=== PATIENT | female | born 1965 | race Caucasian/White ===

== ENCOUNTER 2018-12-30 23:16 | Emergency (ER) | payer OTHER ==
[~2018-12-30] VITALS: Ht 152.4 cm; Wt 77.1 kg
--- NOTE | 2018-12-30 23:16 | NUR ---
PT OSCAR ALS. TAKEN TO BED 10
[2018-12-30] MEDS ORDERED: NACL 0.9% 1,000 ML IV ONE (23:20)
[2018-12-30 23:21] VITALS: BP 151/94
--- NOTE | 2018-12-30 23:24 | NUR ---
X-Ray at bedside.
--- NOTE | 2018-12-30 23:31 | NUR ---
PT PRESENTS TO ED BIBA FOR SUDDEN ONSET CHEST PAIN X 30 MINS. NO SOB AT THIS TIME. PT DENIES ANY PERCIPITATING FACTORS. EKG PERFORMED AT BEDSIDE. PT PLACED INTO BED, ON ALL MONITORS. ER MD AWARE OF PT STATUS. 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
[2018-12-30 23:37] LABS: BASOPHILS % (AUTO) 0.7 % (0.0-2.0); EOSINOPHILS # (AUTO) 0.5 K/uL (0-0.4); EOSINOPHILS % (AUTO) 7.3 % (0.0-4.0); HEMATOCRIT 42.3 % (36-48); HEMOGLOBIN 14.3 g/dL (12.0-16.0); LYMPHOCYTES # (AUTO) 2.9 K/uL (2.5-16.5); LYMPHOCYTES % (AUTO) 37.7 % (20.5-51.1); MEAN CORPUSCULAR HEMOGLOBIN 30 pg (27-31); MEAN CORPUSCULAR HGB CONC 34 g/dL (33-37); MEAN CORPUSCULAR VOLUME 87.2 fL (80-94); MONOCYTES # (AUTO) 0.6 K/uL (0.8-1.0); MONOCYTES % (AUTO) 7.8 % (1.7-9.3); NEUTROPHILS # (AUTO) 3.5 K/uL (1.8-7.7); NEUTROPHILS % (AUTO) 46.5 % (42.2-75.2); PLATELET COUNT (AUTO) 272 K/uL (140-450); RED BLOOD CELL COUNT(AUTO) 4.86 MIL/uL (4.20-5.40); RED CELL DISTRIBUTION WIDTH 13.5 % (11.6-13.7); WHITE BLOOD COUNT (AUTO) 7.6 K/uL (4.8-10.8)
--- NOTE | 2018-12-30 23:38 | NUR ---
Dr. Benavides evaluating patient at bedside.
[2018-12-30] MEDS ORDERED: ALUMINUM HYD/MAG/SIMETHICONE 30 ML UDC PO ONE (23:45)
[2018-12-30] MEDS ORDERED: LIDOCAINE VISCOUS 2% 20 ML UDC PO ONE (23:45)
[2018-12-30] MEDS ORDERED: DICYCLOMINE HCL LIQUID 10 MG/5 ML UDC PO ONE (23:45)
[2018-12-30 23:48] LABS: ANION GAP 11.6 (8-16); CARBON DIOXIDE 25.7 mmol/L (21-32); CREATININE 0.7 mg/dL (0.6-1.3); POTASSIUM 3.3 mmol/L (3.5-5.1)
[2018-12-30 23:50] LABS: ALBUMIN 3.8 g/dL (3.4-5.0); TOTAL BILIRUBIN 0.9 mg/dL (0.0-1.0)
[2018-12-31 00:01] LABS: PROTHROMBIN TIME 9.1 secs (10.8-13.4)
--- NOTE | 2018-12-31 00:04 | NUR ---
FAMILY AT BEDSIDE
[2018-12-31] MEDS ORDERED: LORazepam 2 MG/ML VIAL IVP ONE (00:10)
[2018-12-31] MEDS ORDERED: KETOROLAC 30 MG/ML VIAL IVP ONE (00:10)
[2018-12-31] MEDS ORDERED: PANTOPRAZOLE 40 MG INJ VIAL IVP ONE (00:35)
--- NOTE | 2018-12-31 00:45 | NUR ---
MEDS GIVEN-NADR AT THIS TIME
--- NOTE | 2018-12-31 00:55 | NUR ---
Patient discharged with v/s stable. Written and verbal after care instructions given and explained. Patient alert, oriented and verbalized understanding of instructions. Ambulatory with steady gait. All questions addressed prior to discharge. ID band removed. Patient advised to follow up with PMD. Rx of MAALOX, PROTONIX given. Patient educated on indication of medication including possible reaction and side effects. Opportunity to ask questions provided and answered.
[2018-12-31 00:56] VITALS: BP 144/88
== END 2018-12-31 00:55 | disposition home or self-care (01) ==
LOC: MED 23:16
DX: K21.9 Gastro-esophageal reflux disease without esophagitis (principal); R07.89 Other chest pain
CPT/HCPCS: 36415; 71045; 80053; 84484; 85025; 85610; 85730; 96374; 96375; 99284; C9113; J1885; J2060; 93005

== ENCOUNTER 2023-06-26 14:47 | Inpatient (IN) | payer MEDICAID, OTHER ==
[~2023-06-26] VITALS: Ht 160 cm; Wt 81.6 kg
--- NOTE | 2023-06-26 14:47 | NUR ---
BIBA BLS TO ER BED 9
--- NOTE | 2023-06-26 14:50 | NUR ---
MD BARNES AT EVALUATING PT. PT C/O RUQ PAIN. PT S/P CHOLECYSTECTOMY (MAY 07) WHICH WAS PERFORMED IN [place]. SINCE HER SURGERY SHE HAS CONTINUED TO EXPERIENCE RUQ PAIN. PAIN WORSE TODAY.
[2023-06-26 14:56] VITALS: BP 137/80; PULSE 81; RESP 16; TEMP 98.4; O2SAT 98
--- NOTE | 2023-06-26 15:05 | NUR ---
PT TAKEN OFF UNIT TO CT-SCAN.
--- NOTE | 2023-06-26 15:24 | NUR ---
UA CUP GIVEN TO PT. ASKED PT TO PROVIDE URINE SAMPLE. LAB AT DRAWING PT.
[2023-06-26 15:37] LABS: BASOPHILS # (AUTO) 0.1 K/uL (0.00-0.22); BASOPHILS % (AUTO) 0.7 % (0.0-2.0); EOSINOPHILS # (AUTO) 0.3 K/uL (0-0.4); EOSINOPHILS % (AUTO) 3.7 % (0.0-4.0); HEMATOCRIT 41.7 % (36-48); HEMOGLOBIN 14.2 g/dL (12.0-16.0); LYMPHOCYTES # (AUTO) 1.7 K/uL (2.5-16.5); LYMPHOCYTES % (AUTO) 19.1 % (20.5-51.1); MEAN CORPUSCULAR HEMOGLOBIN 30 pg (27-31); MEAN CORPUSCULAR HGB CONC 34 g/dL (33-37); MEAN CORPUSCULAR VOLUME 87.3 fL (80-94); MONOCYTES # (AUTO) 0.6 K/uL (0.8-1.0); MONOCYTES % (AUTO) 6.8 % (1.7-9.3); NEUTROPHILS # (AUTO) 6.3 K/uL (1.8-7.7); NEUTROPHILS % (AUTO) 69.7 % (42.2-75.2); PLATELET COUNT (AUTO) 255 K/uL (140-450); RED BLOOD CELL COUNT(AUTO) 4.78 MIL/uL (4.20-5.40); RED CELL DISTRIBUTION WIDTH 14.7 % (11.6-13.7)
--- NOTE | 2023-06-26 15:49 | NUR ---
Cayden salazar in ED - 06/26/23 at 1558 by MEDSC IVPB ANTIBIOTIC CONTINUES TO INFUSE.
[2023-06-26 15:53] LABS: ALBUMIN 3.6 g/dL (3.4-5.0); ANION GAP 13.4 (8-16); ASPARTATE AMINOTRANSFERASE 96 U/L (15-37); CARBON DIOXIDE 24.3 mmol/L (21-32); CHLORIDE 110 mmol/L (98-107); CREATININE 0.7 mg/dL (0.6-1.3); GFR ARICAN-AMERICAN 111 mL/min (>90); GLUCOSE 96 mg/dL (74-106); LIPASE 156 U/L (73-393); POTASSIUM 3.7 mmol/L (3.5-5.1); SODIUM SERUM 144 mmol/L (136-145); TOTAL BILIRUBIN 1.5 mg/dL (0.0-1.0); UREA NITROGEN, BLOOD 8 mg/dL (7-18)
--- NOTE | 2023-06-26 15:59 | NUR ---
ULTRASOUND BEING PERFORMED AT BS. CONTINUE TO PEND UA SAMPLE.
[2023-06-26] MEDS ORDERED: KETOROLAC 30 MG/ML VIAL IM ONE (16:55)
[2023-06-26] MEDS ORDERED: KETOROLAC 30 MG/ML VIAL IVP ONE (16:55)
[2023-06-26] MEDS ORDERED: ACETAMINOPHEN EXTRA STRENGTH 500 MG TAB PO ONE (16:55)
--- NOTE | 2023-06-26 17:00 | NUR ---
INFORMED THE PT THAT SHE WOULD BE ADMITTED INTO THE HOSPITAL DUE TO A RETAINED STONE THAT IS IN THE COMMON BILE DUCT. WILL INSERT H/L ORDERED.
[2023-06-26 17:08] LABS: APPEARANCE,URINE CLEAR (CLEAR); BILIRUBIN,URINE NEGATIVE (NEGATIVE); BLOOD, URINE 1+ (NEGATIVE); COLOR,URINE YELLOW (YELLOW); LEUKOCYTE ESTERASE ,URINE TRACE (NEGATIVE); NITRITE, URINE NEGATIVE (NEGATIVE); PH,URINE 6.5 (5.0-9.0); UGLUCOSE NEGATIVE (NEGATIVE)
[2023-06-26] MEDS ORDERED: ERGO-30 PO (17:41)
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
[2023-06-26] MEDS ORDERED: ZOLPIDEM 5 MG TAB PO PRN (18:05)
[2023-06-26] MEDS ORDERED: HYDROcodone/APAP 7.5/325 MG 1 TAB PO PRN (18:05)
[2023-06-26] MEDS ORDERED: ONDANSETRON 4 MG/2 ML VIAL IM/IVP PRN (18:05)
[2023-06-26] MEDS ORDERED: guaiFENesin DM 200/20 MG-10 ML 10 ML UDC PO PRN (18:05)
[2023-06-26] MEDS ORDERED: POTASSIUM CHLORIDE 10 MEQ TABER PO PRN (18:05)
[2023-06-26] MEDS ORDERED: ACETAMINOPHEN 325 MG TAB PO PRN (18:05)
[2023-06-26] MEDS ORDERED: DOCUSATE SODIUM 100 MG GELCAP PO PRN (18:05)
[2023-06-26 18:34] LABS: PROTHROMBIN TIME 9.6 secs (10.8-13.4)
[2023-06-26 18:41] LABS: FREE T4 (FREE THYROXINE) 1.17 ng/dL (0.76-1.46); MAGNESIUM 2.3 mg/dL (1.8-2.4); PHOSPHORUS 3.8 mg/dL (2.5-4.9); THYROID STIMULATING HORMONE 0.88 uIU/mL (0.34-3.74)
[2023-06-26] MEDS: DEXT 5% /NACL 0.9% 1,000 ML IV SCH (19:27)
--- NOTE | 2023-06-26 19:47 | NUR ---
attempted to call report . [facility] nurse to call back
--- NOTE | 2023-06-26 19:48 | NUR ---
PT RESTING IN BED WITH HOB ELEVATED. 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 PENDING TX TO FLOOR 120B. RESP EVEN AND UNLABORED. 03/09 PAIN RUQ SHARP/BURNING.
--- NOTE | 2023-06-26 20:16 | NUR ---
REPORT GIVEN TO STAS BOYD
--- NOTE | 2023-06-26 20:23 | NUR ---
Patient will be admitted to care of DR ROBLES. Admited to [facility]. Will go to [id number]. Belongings list completed. Report to STAS BOYD.
--- NOTE | 2023-06-26 20:23 | NUR ---
PT TRANSPORTED TO /S 120B
[2023-06-26 20:30] VITALS: RESP 19; O2SAT 100
--- NOTE | 2023-06-26 20:30 | NUR ---
RECEIVED ENDORSEMENT FROM JAMAR BOYD, PATIENT WAS IN BED WITH FAMILY AT BEDSIDE. PATIENT ARRIVED FROM THE ED VIA GURNEY. PATIENT ALERT AND ORIENTED X 4. ADMISSION ORDERS ARE AVAILABLE. PATIENT NOSE WAS SWABBED FOR MRSA SCREENING. ORDERS FOR ACCUCHECK WITH SLIDING SCALE WERE PLACE PER PROTOCOL. PATIENT SKIN WAS CLEAN AND INTACT. NPO EXCEPT MEDICATION. PATIENT WAS OFFERED THE VOYCE FOR TRANSLATION BUT DECLINED. PATIENT GAVE HER MEDICAL HISTORY WITHOUT INCIDENT. PATIENT DENIED ANY PAIN/DISCOMFORT AT THIS TIME. ALL NEEDS WERE MET AT THIS TIME. NO NOTED RESPIRATORY DISTRESS. CHEST NOTED RISING AND FALLING WITHOUT INCIDENT. PATIENT KEPT CLEAN AND DRY AT THIS TIME. SIDE RAILS UP X 2 FOR SAFETY AND ADJUSTMENT. CALL LIGHT WITHIN REACH FOR ALL ASSISTANCE. [email or web address]
--- NOTE | 2023-06-26 20:30 | NUR ---
Patient's Plan of Care was discussed and reviewed with FLAKITO BOYD:
[2023-06-26] MEDS: MORPHINE SULFATE 2 MG/ML SYR IVP PRN (23:28)
--- NOTE | 2023-06-27 00:50 | NUR ---
PATIENT WAS GIVEN PAIN PRN AND NO NOTED SIDE EFFECTS. PATIENT WAS ABLE TO SLEEP. NO NOTED RESPIRATORY DISTRESS AT THIS TIME. NO NOTED FACIAL GRIMACING AT THIS TIME OR CURLED IN A BALL MASSAGING HER STOMACH. SIDE RAILS UP X 2 CALL LIGHT WITHIN REACH. [email or web address]
[2023-06-27] MEDS: DEXT 5% /NACL 0.9% 1,000 ML IV SCH ×3 (01:30→16:20)
[2023-06-27] MEDS ORDERED: INSULIN LISPRO SLIDING SCALE 100 UNITS/ML VIAL SUBQ PRN (01:40)
--- NOTE | 2023-06-27 03:42 | NUR ---
PATIENT WAS ASLEEP. CHEST WAS RISING AND FALLING WITHOUT INCIDENT. ALL NEEDS MET. PATIENT REMAINS CLEAN AND DRY. NO S/S OF PAIN/DISCOMFORT. SIDE RAILS UP X 3 CALL LIGHT WITHIN REACH. [email or web address]
[2023-06-27 04:00] VITALS: BP 100/60; PULSE 53; RESP 17; TEMP 97.4; O2SAT 95
--- NOTE | 2023-06-27 05:16 | NUR ---
PATIENT HAS ON S/S OF HYPER/HYPOGLYCEMIA. DENIES PAIN AT THIS TIME. ALL NEEDS MET. KEPT CLEAN AND DRY. PATIENT WAS REMINDED TO PLEASE GIVE URINE WHEN SHE USES THE RESTROOM. PATIENT UNDERSTOOD AND AGREES. SIDE RAILS UP X 2 CALL LIGHT WITHIN REACH. [email or web address]
[2023-06-27 06:13] LABS: BASOPHILS % (AUTO) 0.8 % (0.0-2.0); EOSINOPHILS # (AUTO) 0.3 K/uL (0-0.4); EOSINOPHILS % (AUTO) 7.3 % (0.0-4.0); HEMATOCRIT 37.9 % (36-48); LYMPHOCYTES # (AUTO) 1.9 K/uL (2.5-16.5); LYMPHOCYTES % (AUTO) 39.6 % (20.5-51.1); MEAN CORPUSCULAR HEMOGLOBIN 30 pg (27-31); MEAN CORPUSCULAR HGB CONC 34 g/dL (33-37); MEAN CORPUSCULAR VOLUME 87.2 fL (80-94); MONOCYTES # (AUTO) 0.4 K/uL (0.8-1.0); MONOCYTES % (AUTO) 8.7 % (1.7-9.3); NEUTROPHILS % (AUTO) 43.6 % (42.2-75.2); PLATELET COUNT (AUTO) 229 K/uL (140-450); RED BLOOD CELL COUNT(AUTO) 4.35 MIL/uL (4.20-5.40); RED CELL DISTRIBUTION WIDTH 14.8 % (11.6-13.7); WHITE BLOOD COUNT (AUTO) 4.7 K/uL (4.8-10.8)
[2023-06-27] MEDS: BLOOD GLUCOSE MONITORING 1 DEV DEV FS SCH ×4 (06:58→21:54)
--- NOTE | 2023-06-27 07:04 | NUR ---
ENDORSED CARE TO OLVIN BENAVIDES, PATIENT WAS STABLE DURING THE CHANGE OF SHIFT. [email or web address]
--- NOTE | 2023-06-27 07:05 | NUR ---
RECEIVED BEDSIDE REPORT FROM NIGHTSHIFT NURSE. PT IS ASLEEP IN BED, WOKE TO NAME AND TOUCH. PT IS STABLE, NO SIGNS OF DISTRESS, NO REPORTS OF PAIN/DISCOMFORT. PT CALL LIGHT IS WITHIN REACH. NO FURTHER NEEDS ARE TO BE MET AT THIS TIME. WILL CONTINUE WITH PT CARE.
[2023-06-27 07:11] LABS: ANION GAP 11.5 (8-16); CARBON DIOXIDE 25.9 mmol/L (21-32); CREATININE 0.6 mg/dL (0.6-1.3); POTASSIUM 3.4 mmol/L (3.5-5.1)
[2023-06-27 07:51] LABS: ALBUMIN 3.1 g/dL (3.4-5.0); BILIRUBIN,DIRECT 0.2 mg/dL (0.0-0.3); TOTAL BILIRUBIN 1.3 mg/dL (0.0-1.0)
[2023-06-27 08:00] VITALS: BP 114/60; PULSE 57; RESP 18; TEMP 97.2; O2SAT 97
[2023-06-27 08:08] LABS: T4 (THYROXINE) 8.7 ug/dL (4.5-12.0)
[2023-06-27] MEDS: PANTOPRAZOLE 40 MG TABEC PO SCH (09:27)
[2023-06-27 16:00] VITALS: BP 113/70; PULSE 60; RESP 18; TEMP 97.9; O2SAT 96
[2023-06-27 18:05] LABS: BARBITURATE, URINE NEGATIVE ng/ml (NEG <=200); BENZODIAZEPINE, URINE NEGATIVE ng/mL (NEG <=200); CANNABINOID, URINE NEGATIVE ng/mL (NEG <=50); COCAINE, URINE NEGATIVE ng/mL (NEG <=300); OPIATE, URINE POSITIVE ng/mL (NEG <=2000); PHENCYCLIDINE SCREEN,URINE NEGATIVE ng/mL (NEG <=25)
--- NOTE | 2023-06-27 19:40 | NUR ---
SPOKE WITH GI MD EARLIER TODAY - INSTRUCTED TO KEEP PT NPO. PT STATES SHE IS HUNGRY AND IS REQUESTING FOOD. CONTACTED MD REGARDING PT REQUEST, NO REPLY. ENDORSED TO NIGHTSHIFT NURSE FOR CONTINUITY OF CARE. PT IS STABLE, RESTING IN BED, NO SIGNS OF DISTRESS. NO REPORTS OF PAIN OR DISCOMFORT. CALL LIGHT IS WITHIN REACH.
[2023-06-27 20:00] VITALS: BP 123/77; PULSE 60; RESP 18; TEMP 97.5; O2SAT 98
--- NOTE | 2023-06-27 21:00 | NUR ---
BLOOD SUGAR CHECKED = 104, NO SLIDING SCALE COVERAGE.
[2023-06-27] MEDS: MORPHINE SULFATE 2 MG/ML SYR IVP PRN (22:17)
--- NOTE | 2023-06-27 22:17 | NUR ---
PT COMPLAINTS OF ABDOMINAL PAIN 06/08, PAIN MEDICATION MORPHINE 2MG ADMINISTERED ORDER.
--- NOTE | 2023-06-27 23:17 | NUR ---
REASSESSMENT OF PAIN. PT IS ASLEEP, NO FACIAL GRIMACING.
--- NOTE | 2023-06-28 03:30 | NUR ---
PT SLEEPING WELL, NO SOB OR DISTRESS
[2023-06-28] MEDS: DEXT 5% /NACL 0.9% 1,000 ML IV SCH ×4 (03:49→22:48)
[2023-06-28 04:00] VITALS: BP 135/80; PULSE 65; RESP 18; TEMP 97.5; O2SAT 97
[2023-06-28 05:10] LABS: BASOPHILS % (AUTO) 0.5 % (0.0-2.0); EOSINOPHILS # (AUTO) 0.4 K/uL (0-0.4); EOSINOPHILS % (AUTO) 5.9 % (0.0-4.0); HEMATOCRIT 38.2 % (36-48); HEMOGLOBIN 13.1 g/dL (12.0-16.0); LYMPHOCYTES % (AUTO) 32.1 % (20.5-51.1); MEAN CORPUSCULAR HEMOGLOBIN 30 pg (27-31); MEAN CORPUSCULAR HGB CONC 35 g/dL (33-37); MEAN CORPUSCULAR VOLUME 87.3 fL (80-94); MONOCYTES # (AUTO) 0.6 K/uL (0.8-1.0); MONOCYTES % (AUTO) 9.1 % (1.7-9.3); NEUTROPHILS # (AUTO) 3.2 K/uL (1.8-7.7); NEUTROPHILS % (AUTO) 52.4 % (42.2-75.2); PLATELET COUNT (AUTO) 226 K/uL (140-450); RED BLOOD CELL COUNT(AUTO) 4.37 MIL/uL (4.20-5.40); RED CELL DISTRIBUTION WIDTH 14.7 % (11.6-13.7); WHITE BLOOD COUNT (AUTO) 6.2 K/uL (4.8-10.8)
[2023-06-28 06:16] LABS: ANION GAP 11.4 (8-16); CARBON DIOXIDE 23.3 mmol/L (21-32); CREATININE 0.6 mg/dL (0.6-1.3); POTASSIUM 3.7 mmol/L (3.5-5.1)
[2023-06-28] MEDS: BLOOD GLUCOSE MONITORING 1 DEV DEV FS SCH ×4 (06:30→22:45)
--- NOTE | 2023-06-28 06:30 | NUR ---
BLOOD SUGAR CHECKED = 104, NO SLIDING SCALE COVERAGE.
--- NOTE | 2023-06-28 07:35 | NUR ---
RECEIVED PATIENT ON BED REST , A/OX4 , NO SOB , AWAKE , NPO FOR OP TODAY ,NO COMPLAIN AT THIS SANTHOSH , STILL UNDER OBSERVE .
[2023-06-28 08:00] VITALS: BP 121/76; PULSE 56; RESP 18; TEMP 97; O2SAT 98
[2023-06-28] MEDS: PANTOPRAZOLE 40 MG TABEC PO SCH (08:09)
--- NOTE | 2023-06-28 09:49 | NUR ---
PATIENT HAS BEEN SCREENED AND CATEGORIZED HIGH NUTRITION RISK. PATIENT WILL BE SEEN WITHIN 1-2 DAYS OF ADMISSION. 06/26/23-06/28/[address] FNJ Carlos REFERRAL RECEIVED FOR WT LOSS 2-13 LB W/O TRYING AND EATING POORLY > 1 WEEK
[2023-06-28] MEDS ORDERED: fentaNYL citrate 0.05 MG/ML VIAL ONE (11:22)
[2023-06-28] MEDS ORDERED: PROPOFOL 200 MG/20 ML VIAL IV ONE (12:03)
[2023-06-28] MEDS ORDERED: SUCCINYLCHOLINE CHLORIDE 200 MG/10 ML VIAL IVP ONE (12:03)
[2023-06-28] MEDS ORDERED: ONDANSETRON 4 MG/2 ML VIAL ONE (12:04)
[2023-06-28] MEDS ORDERED: KETOROLAC 30 MG/ML VIAL ONE (12:04)
[2023-06-28] MEDS ORDERED: hydrALAZINE 20 MG/ML VIAL IVP PRN (12:59)
[2023-06-28] MEDS ORDERED: METOCLOPRAMIDE 10 MG/2 ML INJ VIAL IVP PRN (12:59)
[2023-06-28] MEDS ORDERED: LABETALOL 20 MG/4 ML VIAL IVP PRN (12:59)
[2023-06-28] MEDS ORDERED: LACTATED RINGERS 1,000 ML IV SCH (13:00)
[2023-06-28] MEDS ORDERED: HYDROmorphone 1 MG/ML AMP IVP PRN (13:00)
--- NOTE | 2023-06-28 13:30 | NUR ---
patient come back from OR , VSS , still on iv fluid 135cc/h , she has abdominal pain , pain meds given common bill duct stone removed , patient still under observe .
[2023-06-28] MEDS: MORPHINE SULFATE 2 MG/ML SYR IVP PRN (13:48)
[2023-06-28 13:53] VITALS: BP 157/83; PULSE 69; RESP 20; TEMP 97; O2SAT 96
[2023-06-28 14:02] VITALS: BP 146/86; PULSE 70; RESP 20; O2SAT 98
--- NOTE | 2023-06-28 14:37 | NUR ---
patient sleeping on bed , no complain at this time , still under observe .
[2023-06-28 15:15] VITALS: BP 130/69; PULSE 62; RESP 20; TEMP 97; O2SAT 96
--- NOTE | 2023-06-28 15:33 | NUR ---
i called dr martinez to ask about diet for pt , said keep her npo till 1999 pm .
--- NOTE | 2023-06-28 15:55 | NUR ---
PATIENT AT BED IN REST , VSS , MED SURG PATIENT , NPO TILL [address] REQUEST , NO COMPLAIN AT THIS TIME SAFETY PROACTION IN PLACE , SIDE RAILS UP X2 , BED IN LOWER POSITION , CALL LIGHT WITHIN REACH DRESSING GLEN , AMBULATORY TO THE REST ROOM , CONTINENT X2 , NO BOWEL MOVEMENT ,ON IV FLUID 135CC/H PATIENT STILL UNDER OBSERVE .
--- NOTE | 2023-06-28 18:36 | NUR ---
06/28/23 RD INITIAL ASSESSMENT COMPLETED. PLEASE REFER TO NUTRITION ASSESSMENT UNDER CARE ACTIVITY FOR ESTIMATED NUTRITIONAL NEEDS. 1. CONTINUE FULL LIQUID DIET PER MD. WHEN/IF MEDICALLY APPROPRIATE, GRADUALLY ADVANCE TO LOW FAT DIET TOLERATED. 2. MONITOR PO INTAKE AND GI SYMPTOMS. 3. RD TO FOLLOW-UP 3-5 DAYS, MODERATE RISK ELINA CARTAGENA RD
--- NOTE | 2023-06-28 19:11 | NUR ---
SHIFT REPORT GIVEN TO NIGHT NURSE , ALL HER QUESTION ANSWERED .'ADDRESS TO START DIET AFTER 8 PM TODAY,
--- NOTE | 2023-06-28 19:12 | NUR ---
RECEIVED ENDORSEMENT FROM DAY SHIFT NURSE. PT IS ON BED, AWAKE, ALERT AND VERBALLY RESPONSIVE. PT IS S/P GI ERCP PROCEDURE TODAY. PT IS ON STABLE CONDITION. PT VERBALIZED OF SLIGHTLY DISCOMFORT AT THIS TIME BUT BEARABLE. PT IS ON FULL LIQUID DIET AT THIS TIME. IV SITE IS INTACT AND PATENT.
[2023-06-28 20:00] VITALS: BP 136/76; PULSE 85; RESP 18; TEMP 97.5; O2SAT 96; O2SAT 98
--- NOTE | 2023-06-28 22:50 | NUR ---
ENDORSED PT TO MARTHA BENAVIDES FOR CONTINUITY OF CARE.
--- NOTE | 2023-06-28 22:50 | NUR ---
RECEIVED REPORT FROM NIGHT NURSE IQRA AT 2230 FOR CONTINUITY OF CARE. PATIENT IS A&O X4. PATIENT IS ON ROOM AIR, BREATHING IS NORMAL WITH SYMMETRICAL RISE AND FALL OF CHEST. IV IS A 20G RAC; REPLACED D5NS BAG, NOW RUNNING AT 135 ML/HR. PATIENT IS LYING SEMI-FOWLERS IN BED. BED IS IN LOWEST POSITION, WHEELS LOCKED, CALL LIGHT IN PLACE. WILL CONTINUE TO OBSERVE PATIENT.
--- NOTE | 2023-06-29 01:00 | NUR ---
LOOKED IN ON PATIENT. PATIENT WAS SLEEPING; BREATHING WAS NORMAL WITH SYMMETRICAL RISE AND FALL OF CHEST. WILL CONTINUE TO OBSERVE PATIENT.
[2023-06-29 04:00] VITALS: BP 143/78; PULSE 94; RESP 18; TEMP 97.6; O2SAT 95
--- NOTE | 2023-06-29 04:30 | NUR ---
HAD DIFFICULTY WITH PATIENT'S IV. PUMP KEPT READING ERROR MESSAGE. DISCONNECTED PATIENT AND TRIED MULTIPLE BOLUSES AND TWO SEPARATE PUMPS, BUT ERROR KEPT PATIENT IS SLEEPING, LYING SEMI-FOWLERS IN BED. BREATHING IS NORMAL WITH SYMMETRICAL RISE AND FALL OF CHEST. WILL CONTINUE TO OBSERVE PATIENT. Addendum: 06/29/23 at 0533 by Milad Bacon RN ... BUT ERROR MESSAGE KEPT APPEARING. CHANGED OUT IV FLUID LINE FROM PUMP WITH NEW LINE; IV IS NOW RUNNING WITHOUT ERROR MESSAGE. PATIENT IS SLEEPING, LYING SEMI-FOWLERS IN BED. BREATHING IS NORMAL WITH SYMMETRICAL RISE AND FALL OF CHEST. WILL CONTINUE TO OBSERVE PATIENT.
[2023-06-29] MEDS: DEXT 5% /NACL 0.9% 1,000 ML IV SCH ×2 (05:25→12:56)
[2023-06-29 05:27] LABS: BASOPHILS % (AUTO) 0.1 % (0.0-2.0); EOSINOPHILS % (AUTO) 0.2 % (0.0-4.0); HEMATOCRIT 39.2 % (36-48); HEMOGLOBIN 13.9 g/dL (12.0-16.0); LYMPHOCYTES # (AUTO) 0.4 K/uL (2.5-16.5); LYMPHOCYTES % (AUTO) 4.4 % (20.5-51.1); MEAN CORPUSCULAR HEMOGLOBIN 30 pg (27-31); MEAN CORPUSCULAR HGB CONC 35 g/dL (33-37); MEAN CORPUSCULAR VOLUME 86.1 fL (80-94); MONOCYTES # (AUTO) 0.6 K/uL (0.8-1.0); MONOCYTES % (AUTO) 6.4 % (1.7-9.3); NEUTROPHILS # (AUTO) 8.3 K/uL (1.8-7.7); NEUTROPHILS % (AUTO) 88.9 % (42.2-75.2); PLATELET COUNT (AUTO) 223 K/uL (140-450); RED BLOOD CELL COUNT(AUTO) 4.56 MIL/uL (4.20-5.40); RED CELL DISTRIBUTION WIDTH 14.3 % (11.6-13.7); WHITE BLOOD COUNT (AUTO) 9.4 K/uL (4.8-10.8)
[2023-06-29 06:06] LABS: ANION GAP 12.7 (8-16); CARBON DIOXIDE 22.5 mmol/L (21-32); CREATININE 0.6 mg/dL (0.6-1.3); POTASSIUM 3.2 mmol/L (3.5-5.1)
--- NOTE | 2023-06-29 06:45 | NUR ---
PATIENT REFUSED TO HAVE BLOOD SUGAR TAKEN; STATING SHE IS NOT A DIABETIC AND DOESN'T WANT IT DONE. WILL INFORM DAY SHIFT NURSE OF PATIENT'S REFUSAL.
[2023-06-29] MEDS: BLOOD GLUCOSE MONITORING 1 DEV DEV FS SCH ×2 (07:22→11:30)
--- NOTE | 2023-06-29 07:30 | NUR ---
ENDORSED TO DAY SHIFT NURSE KENYA FOR CONTINUITY OF CARE. PATIENT IS STABLE.
[2023-06-29 08:00] VITALS: PULSE 94; RESP 18; O2SAT 95
[2023-06-29] MEDS ORDERED: POTASSIUM CHLORIDE 10 MEQ TABER PO SCH (08:00)
[2023-06-29] MEDS: PANTOPRAZOLE 40 MG TABEC PO SCH (08:53)
[2023-06-29] MEDS ORDERED: PANT40EC56 PO (12:11)
[2023-06-29 13:00] VITALS: BP 120/78; PULSE 88; RESP 18; TEMP 97.9
--- NOTE | 2023-06-29 13:45 | NUR ---
DISCHARGE PATIENT IN STABLE CONDITION HOME PER PCP ORDER; DISCHARGE INSTRUCTION GIVE, DISCHARGE CONSENT SIGNED, IV ACCESS & WRIST BAND REMOVE PRIOR WHEEL PATIENT OUT THE FACILITY. PATIENT AWARE THAT SHE NEEDS TO FOLLOW WITH HER PCP WITHIN 5 BUSINESS DAY.
== END 2023-06-29 13:55 | disposition home or self-care (01) | DRG 252 ==
LOC: MED 14:47 → MMU 18:12 → MTU 18:40
PROVIDERS: ADMIT Family Medicine; ATTEND Family Medicine
PROC: BF101ZZ Fluoroscopy of Bile Ducts using Low Osmolar Contrast (ICD-10-PCS; 2023-06-28)
PROC: 0FC98ZZ Extirpation of Matter from Common Bile Duct, Via Natural or Artificial Opening Endoscopic (ICD-10-PCS; principal; 2023-06-28 11:15)
DX: K91.86 Retained cholelithiasis following cholecystectomy (principal); E83.51 Hypocalcemia; R30.9 Painful micturition, unspecified; R74.01 Elevation of levels of liver transaminase levels; Y83.6 Removal of other organ (partial) (total) as the cause of abnormal reaction of the patient, or of later complication, without mention of misadventure at the time of the procedure; E87.6 Hypokalemia; Z90.49 Acquired absence of other specified parts of digestive tract; Z90.710 Acquired absence of both cervix and uterus; Y92.89 Other specified places as the place of occurrence of the external cause
CPT/HCPCS: 36415; 71045; 74330; 76705; 80048; 80053; 80076; 80305; 81001; 82150; 82948; 83036; 83690; 83735; 83880; 84100; 84436; 84439; 84443; 84479; 84484; 85025; 85610; 85730; 87081; 93005; 96374; 99285; C1727; C1769; J0330; J1815; J1885; J2270; J2405; J2704; J2765; J3010; Q0092